=== PATIENT | male | born 1985 | race African-American/Black ===

== ENCOUNTER 2017-04-08 16:40 | Emergency (ER) | payer OTHER ==
--- NOTE | 2017-04-08 19:07 | ED.ADGEN ---
Past Medical History Past Medical History: No Pertinent History Past Surgical History: No Surgical History Alcohol Use: Heavy Drug Use: None Adult General Chief Complaint Chief Complaint: TREMORS HPI HPI Patient is a 31 year old -[place] male presents with occasional coarse tremor in left arm and intermittent palpitations. Symptom onset earlier today and now currently resolved. Patient denies chest pain shortness of breath. He is not diabetic. He takes no medications on a regular basis. Denies recent alcohol consumption, drugs and tobacco. Patient noted to be hypertensive 170/ 105. Patient denies history of hypertension, but states that he never checks his blood pressure and has not seen a doctor in years. Review of Systems Review of Systems Review symptoms as per history of present illness. Allergies Allergies Allergies Coded Allergies Type Severity Reaction Last Updated Verified No Known Drug Allergies 11/13/15 No Physical Exam Physical Exam Constitutional: Well developed, well nourished, no acute distress, non-toxic appearance. HENT: Normocephalic, atraumatic, bilateral external ears normal, oropharynx moist, no oral exudates, nose normal. Eyes: PERRLA, EOMI, conjunctiva normal. Neck: Normal range of motion, no tenderness. Cardiovascular:Heart rate regular rhythm, no murmur. Lungs & Thorax: Bilateral breath sounds clear to auscultation. Abdomen: Bowel sounds normal, soft, no tenderness. Skin: Warm, dry. Back: No tenderness. Extremities: No tenderness. Neurologic: Alert and oriented X 3, normal motor function, normal sensory function, no focal deficits noted. Psychologic: Affect normal, judgement normal, mood normal. Current Patient Data Vital Signs Vital Signs Date Time Temp Pulse Resp B/P (MAP) Pulse Ox O2 Delivery O2 Flow Rate FiO2 04/08/17 18:33 88 20 152/105 (121) 94 04/08/17 17:02 98.6 Room Air 98.6 Lab Values Laboratory Tests Test 04/08/17 18:36 Glucose (Fingerstick) 88 mg/dL (70-99) EKG EKG [EKG: Normal sinus rhythm, rate 99, no acute ST-T wave changes, left atrial abnormality, QTC 468.] Radiology/Procedures Radiology/Procedures [] Impressions: Palpitations resolved, blood sugar confirmed normal. Course & Med Decision Making Course & Med Decision Making Pertinent Labs and Imaging studies reviewed. (See chart for details) [Will start patient on low-dose antihypertensive with instructions to follow-up with PCP for further evaluation and testing. Return precautions reviewed.] Dragon Disclaimer Dragon Disclaimer This electronic medical record was generated, in whole or in part, using a voice recognition dictation system. LISA DILLON DO April 08, 2017 19:07
[2017-04-08 19:25] VITALS: BP 152/97
--- NOTE | 2017-04-09 08:40 | EKG ---
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
== END 2017-04-08 19:28 | disposition home or self-care (01) ==
LOC: ER 16:40
DX: R00.2 Palpitations (principal); F10.10 Alcohol abuse, uncomplicated
CPT/HCPCS: 82947; 93005; 99283-25; 99285-25

== ENCOUNTER 2017-09-16 10:43 | Inpatient (IN) | payer BC, OTHER ==
[~2017-09-16] VITALS: Ht 165.1 cm; Wt 74.9 kg
[2017-09-16] MEDS ORDERED: IV NORMAL SALINE 1000ML BAG 1,000 ML IV ONE (12:30)
--- NOTE | 2017-09-16 12:38 | PHYS DOC ---
Past Medical History Past Medical History: No Pertinent History Past Surgical History: No Surgical History Alcohol Use: Heavy Drug Use: None Adult General Chief Complaint Chief Complaint: DIZZY/LIGHT HEADED HPI HPI Patient is a 32 year old M who presents with dizziness and right arm shaking. Patient states he was at work developed some lightheaded and dizziness along with some right arm shaking. Patient states this happened to him in the past. Patient states usually this happens when his blood pressures elevated. Patient has no PCP. Patient was seen for this a couple months ago and prescribed some blood pressure medication however he is not compliant with his blood pressure medication. Patient states when he stands up the room spins. Patient does not know what brings or stops the right arm shaking. Patient states the shaking uncontrollable. Patient denies any vision changes. Patient denies any chest pain or shortness of breath. Patient denies any nausea/vomiting/diarrhea. Patient has no other complaints. Review of Systems Review of Systems GEN: Denies fevers, chills, sweats HEENT: Denies blurred vision, sore throat CV: Denies chest pain RESP: Denies shortness of air, cough GI: Denies n/v/d NEURO: dizziness MSK: Denies weakness, joint pain/swelling Current Medications Current Medications Current Medications Medications (Trade) Dose Ordered Sig/Noel Start Time Stop Time Status Last Admin Dose Admin Lorazepam (Ativan) 1 mg 1X ONCE 09/16/17 15:30 09/16/17 15:31 DC Morphine Sulfate 4 mg PRN Q2HR PRN 09/16/17 15:30 09/17/17 15:29 Ondansetron HCl (Zofran) 4 mg PRN Q8HRS PRN 09/16/17 15:30 09/17/17 15:29 Sodium Chloride 1,000 ml @ 150 mls/hr Q6H40M 09/16/17 15:28 09/17/17 15:27 Allergies Allergies Allergies Coded Allergies Type Severity Reaction Last Updated Verified No Known Drug Allergies 11/13/15 No Physical Exam Physical Exam GEN.: No apparent distress. Alert and oriented. HEENT: Head is normocephalic, atraumatic NECK: Supple. LUNGS: CTAB. HEART: Tachycardia, S1, S2 present. Peripheral pulses intact ABDOMEN: Soft, nontender. Positive bowel sounds. EXTREMITIES: Without any cyanosis. NEUROLOGIC: Normal speech, normal tone, cranial nerves II through XII are grossly intact without any focal neurological deficits. Patient's having myoclonic jerking of the right upper extremity PSYCHIATRIC: Normal affect, normal mood. SKIN: No ulcerations Current Patient Data Vital Signs Vital Signs Date Time Temp Pulse Resp B/P (MAP) Pulse Ox O2 Delivery O2 Flow Rate FiO2 09/16/17 14:30 96 16 96 09/16/17 10:55 99.4 154/92 (112) Room Air 99.4 Lab Values Laboratory Tests Test 09/16/17 10:59 09/16/17 12:03 09/16/17 13:05 Glucose (Fingerstick) 92 mg/dL (70-99) Urine Color Joy Urine Clarity Clear Urine pH 6.0 Urine Specific [place] >=1.030 Urine Protein 30 mg/dL (NEG-TRACE) Urine Glucose (UA) 500 mg/dL (NEG) Urine Ketones (Stick) Trace mg/dL (NEG) Urine Blood Negative (NEG) Urine Nitrite Negative (NEG) Urine Bilirubin Negative (NEG) Urine Urobilinogen Dipstick 1.0 mg/dL (0.2 mg/dL) Urine Leukocyte Esterase Negative (NEG) Urine RBC 0 /HPF (0-2) Urine WBC Occ /HPF (0-4) Urine Squamous Epithelial Cells Occ /LPF Urine Bacteria 0 /HPF (0-FEW) Urine Mucus Mod /LPF Urine Opiates Screen Neg (NEG) Urine Methadone Screen Neg (NEG) Urine Barbiturates Neg (NEG) Urine Phencyclidine Screen Neg (NEG) Urine Amphetamine/Methamphetamine Neg (NEG) Urine Benzodiazepines Screen Neg (NEG) Urine Cocaine Screen Neg (NEG) Urine Cannabinoids Screen Pos (NEG) Urine Ethyl Alcohol Pos (NEG) White Blood Count 5.9 x10^3/uL (4.0-11.0) Red Blood Count 4.41 x10^6/uL (4.30-5.70) Hemoglobin 14.0 g/dL (13.0-17.5) Hematocrit 41.6 % (39.0-53.0) Mean Corpuscular Volume 94 fL (79-100) Mean Corpuscular Hemoglobin 32 pg (25-35) Mean Corpuscular Hemoglobin Concent 34 g/dL (31-37) Red Cell Distribution Width 14.0 % (11.5-14.5) Platelet Count 122 x10^3/uL (140-400) L Neutrophils (%) (Auto) 87 % (31-73) H Lymphocytes (%) (Auto) 8 % (24-48) L Monocytes (%) (Auto) 4 % (0-9) Eosinophils (%) (Auto) 1 % (0-3) Basophils (%) (Auto) 1 % (0-3) Neutrophils # (Auto) 5.1 x10^3uL (1.8-7.7) Lymphocytes # (Auto) 0.5 x10^3/uL (1.0-4.8) L Monocytes # (Auto) 0.2 x10^3/uL (0.0-1.1) Eosinophils # (Auto) 0.0 x10^3/uL (0.0-0.7) Basophils # (Auto) 0.0 x10^3/uL (0.0-0.2) Platelet Estimate Adequate (ADEQUATE) Sodium Level 142 mmol/L (136-145) Potassium Level 3.6 mmol/L (3.5-5.1) Chloride Level 100 mmol/L (98-107) Carbon Dioxide Level 32 mmol/L (21-32) Anion Gap 10 (6-14) Blood Urea Nitrogen 9 mg/dL (8-26) Creatinine 0.7 mg/dL (0.7-1.3) Estimated GFR (Cockcroft-Gault) 156.2 BUN/Creatinine Ratio 13 (6-20) Glucose Level 84 mg/dL (70-99) Calcium Level 9.7 mg/dL (8.5-10.1) Total Bilirubin 0.4 mg/dL (0.2-1.0) Aspartate Amino Transferase (AST) 279 U/L (15-37) H Alanine Aminotransferase (ALT) 306 U/L (16-63) H Alkaline Phosphatase 65 U/L (46-116) Troponin I Quantitative < 0.017 ng/mL (0.000-0.055) Total Protein 8.4 g/dL (6.4-8.2) H Albumin 4.0 g/dL (3.4-5.0) Albumin/Globulin Ratio 0.9 (1.0-1.7) L Ethyl Alcohol Level 25 mg/dL (0-10) H Laboratory Tests 09/16/17 13:05 Laboratory Tests 09/16/17 13:05 EKG EKG 1246: EKG shows normal sinus rhythm rate of 92 no STEMI[] Radiology/Procedures Radiology/Procedures CT scan of the head and C-spine: Findings: Head: The ventricles are normal in size and configuration. There is no acute intracranial hemorrhage or extra-axial fluid collection. There is no mass effect or midline shift. Urrutia-white differentiation is preserved. There is no depressed skull fracture. The included paranasal sinuses and mastoid air cells are clear. Cervical spine: There is no fracture or dislocation. Prevertebral soft tissues are within normal limits. There is uncinate process spurring at C3-C4 which is greater on the right, probably mild right foraminal narrowing. There is a disc osteophyte complex and uncinate process spurring at C6-C7, mild. There is probably mild to moderate left foraminal narrowing. There is no high-grade canal stenosis. Craniovertebral junction is unremarkable. Lymph nodes along the cervical chains are presumed reactive. Lung apices are clear. Impression: 1. No acute intracranial findings. 2. Negative for fracture or dislocation in the cervical spine. 3. Mild degenerative changes in the cervical spine are greatest at C6-C7, likely with foraminal narrowing on the left at this level. 4. Right foraminal narrowing, mild, suspected at C3-C4.[] Course & Med Decision Making Course & Med Decision Making Pertinent Labs and Imaging studies reviewed. (See chart for details) ED course: Patient was seen and examined emergency room CBC, CMP, UA, and urine drug screen , EtOH level, CT scan of the head, EKG were ordered 1522: Patient was reevaluated in which his tremors left upper extremity has resolved however the patient still tachycardic and had discussion with the patient about his alcohol abuse in which he admitted he does drink heavily. Explained to the patient that this most likely is alcohol withdrawal. Explained to the patient that we'll be admitting him to the hospital for further evaluation and management. 1525: Discussed CC/HP/PMH with Dr. morrison and recommends admit given the patient Ativan [] Dragon Disclaimer Dragon Disclaimer This electronic medical record was generated, in whole or in part, using a voice recognition dictation system. Departure Departure Impression: Primary Impression: Alcohol abuse Additional Impression: Occasional tremors Disposition: ADMITTED INPATIENT Admitting Physician: Hemalatha Morrison Condition: STABLE Referrals: NO PCP (PCP) Problem Qualifiers ANETTE ROGERS DO Sep 16, 2017 12:38
--- NOTE | 2017-09-16 12:56 | RAD ---
Indication: Dizziness, right arm tremors. Technique: Noncontrast CT head was obtained. Axial images and coronal and sagittal reformatted images of the cervical spine were obtained. No comparison is available. One or more of the following individualized dose reduction techniques were utilized for this examination: 1. Automated exposure control 2. Adjustment of the mA and/or kV according to patient size 3. Use of iterative reconstruction technique Findings: Head: The ventricles are normal in size and configuration. There is no acute intracranial hemorrhage or extra-axial fluid collection. There is no mass effect or midline shift. Urrutia-white differentiation is preserved. There is no depressed skull fracture. The included paranasal sinuses and mastoid air cells are clear. Cervical spine: There is no fracture or dislocation. Prevertebral soft tissues are within normal limits. There is uncinate process spurring at C3-C4 which is greater on the right, probably mild right foraminal narrowing. There is a disc osteophyte complex and uncinate process spurring at C6-C7, mild. There is probably mild to moderate left foraminal narrowing. There is no high-grade canal stenosis. Craniovertebral junction is unremarkable. Lymph nodes along the cervical chains are presumed reactive. Lung apices are clear. Impression: 1. No acute intracranial findings. 2. Negative for fracture or dislocation in the cervical spine. 3. Mild degenerative changes in the cervical spine are greatest at C6-C7, likely with foraminal narrowing on the left at this level. 4. Right foraminal narrowing, mild, suspected at C3-C4.
[2017-09-16 13:18] LABS: BASO % 1 % (0-3); EOS % 1 % (0-3); HEMATOCRIT 41.6 % (39.0-53.0); LYMPH # 0.5 x10^3/uL (1.0-4.8); LYMPH % 8 % (24-48); MEAN CORPUSCULAR HEMOGLOBIN 32 pg (25-35); MEAN CORPUSCULAR HGB CONC 34 g/dL (31-37); MEAN CORPUSCULAR VOLUME 94 fL (79-100); MONO % 4 % (0-9); NEUT % 87 % (31-73); PLATELET COUNT 122 x10^3/uL (140-400); RED BLOOD COUNT 4.41 x10^6/uL (4.30-5.70); WHITE BLOOD COUNT 5.9 x10^3/uL (4.0-11.0)
[2017-09-16 13:42] LABS: BILIRUBIN,URINE NEGATIVE (NEG); GLUCOSE,URINE 500 mg/dL (NEG); NITRITE,URINE NEGATIVE (NEG); PROTEIN,URINE 30 mg/dL (NEG-TRACE)
--- NOTE | 2017-09-16 13:44 | EKG ---
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
[2017-09-16 13:45] LABS: CALCIUM 9.7 mg/dL (8.5-10.1); CREATININE 0.7 mg/dL (0.7-1.3); GFR 156.2; POTASSIUM 3.6 mmol/L (3.5-5.1)
[2017-09-16 13:49] LABS: ALBUMIN/GLOBULIN RATIO 0.9 (1.0-1.7); TOTAL BILIRUBIN 0.4 mg/dL (0.2-1.0); TOTAL PROTEIN 8.4 g/dL (6.4-8.2)
[2017-09-16 13:50] LABS: BARBITURATES NEG (NEG); BENZODIAZEPINES NEG (NEG); CANNABINOIDS POS (NEG); COCAINE NEG (NEG); METHADONE NEG (NEG); OPIATES NEG (NEG); PHENCYCLIDINE NEG (NEG)
[2017-09-16 13:54] LABS: BACTERIA,URINE 0 /HPF (0-FEW); RBC,URINE 0 /HPF (0-2); SQUAMOUS EPITHELIAL CELL,UR OCC /LPF; WBC,URINE OCC /HPF (0-4)
--- NOTE | 2017-09-16 14:11 | EKG ---
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
[2017-09-16 14:57] LABS: PLT ESTIMATE ADEQUATE (ADEQUATE)
[2017-09-16] MEDS ORDERED: ONDANSETRON PF 4 MG/2 ML VIAL. IV PRN (15:30)
[2017-09-16] MEDS ORDERED: MORPHINE SULFATE 4 MG/ML DISP.SYRIN. IV PRN (15:30)
[2017-09-16] MEDS: IV NORMAL SALINE 1000ML BAG 1,000 ML IV SCH (16:06)
--- NOTE | 2017-09-16 16:25 | PDOC1 ---
History and Physical Date of Admission Date of Admission DATE: 09/16/17 TIME: 16:21 Identification/Chief Complaint Chief Complaint dizzy Problems: Source Source: Chart review, Patient History of Present Illness History of Present Illness Mr. Merchant, is a 32 year old admit with new dizziness and right arm shaking. 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 Not described as rigor, he called it tremor. And it happened for a short while and resolved. He has hx HTN, takes no meds, and has no PCP. he reports daily EtOH and higher amount of intake over the weekend he feels like the rooms spins when he stands up today. and the arm stopped shaking on its own, he feels tired and lethargic in the ER, HR up, no fever until he reached the floor. Past Medical History Cardiovascular: No pertinent hx Pulmonary: No pertinent hx GI: No pertinent hx Heme/Onc: No pertinent hx Hepatobiliary: No pertinent hx Psych: No pertinent hx Rheumatologic: No pertinent hx Infectious disease: No pertinent hx ENT: No pertinent hx Renal/: No pertinent hx Endocrine: No pertinent hx Past Surgical History Past Surgical History: No pertinent history Social History Smoke: <1 pack per day ALCOHOL: heavy Drugs: None Current Problem List Problem List Problems Medical Problems: (1) Occasional tremors Status: Acute Problems: Current Medications Current Medications Current Medications Sodium Chloride 1,000 ml @ 1,000 mls/hr 1X ONCE IV Last administered on 09/16 13:06; Start 09/16/17 at 12:30; Stop 09/16/17 at 13:29; Status DC Lorazepam (Ativan) 1 mg 1X ONCE IV Last administered on 09/16/17 16:05; Start 09/16/17 at 15:30; Stop 09/16/17 at 15:31; Status DC Ondansetron HCl (Zofran) 4 mg PRN Q8HRS PRN IV NAUSEA/VOMITING; Start at 15:30; Stop 09/17/17 at 15:29 Morphine Sulfate 4 mg PRN Q2HR PRN IV PAIN; Start 09/16/17 at 15:30; Stop at 15:29 Sodium Chloride 1,000 ml @ 150 mls/hr Q6H40M IV Last administered on 10/16/ 17at 16:06; Start 09/16/17 at 15:28; Stop 09/17/17 at 15:27 Allergies Allergies: Coded Allergies: No Known Drug Allergies (Unverified , 11/13/15) Physical Exam General: Alert, Oriented X3, Cooperative, mild distress HEENT: Atraumatic, PERRLA, Mucous membr. moist/pink Lungs: Clear to auscultation, Normal air movement Heart: S1S2, no murmurs Abdomen: Normal bowel sounds, Soft Rectal Exam: not examined Extremities: No edema, Normal pulses Skin: No rashes Neuro: Normal speech, Strength at 5/5 X4 ext, Normal tone, Sensation intact, Cranial nerves 3-12 NL Psych/Mental Status: Mental status NL, Mood NL Vitals Vitals Vital Signs Date Time Temp Pulse Resp B/P (MAP) Pulse Ox O2 Delivery O2 Flow Rate FiO2 09/16/17 14:30 96 16 96 09/16/17 10:55 99.4 154/92 (112) Room Air 99.4 Labs Labs Laboratory Tests Test 09/16/17 10:59 09/16/17 12:03 09/16/17 13:05 Glucose (Fingerstick) 92 mg/dL (70-99) Urine Color Joy Urine Clarity Clear Urine pH 6.0 Urine Specific [place] >=1.030 Urine Protein 30 mg/dL (NEG-TRACE) Urine Glucose (UA) 500 mg/dL (NEG) Urine Ketones (Stick) Trace mg/dL (NEG) Urine Blood Negative (NEG) Urine Nitrite Negative (NEG) Urine Bilirubin Negative (NEG) Urine Urobilinogen Dipstick 1.0 mg/dL (0.2 mg/dL) Urine Leukocyte Esterase Negative (NEG) Urine RBC 0 /HPF (0-2) Urine WBC Occ /HPF (0-4) Urine Squamous Epithelial Cells Occ /LPF Urine Bacteria 0 /HPF (0-FEW) Urine Mucus Mod /LPF Urine Opiates Screen Neg (NEG) Urine Methadone Screen Neg (NEG) Urine Barbiturates Neg (NEG) Urine Phencyclidine Screen Neg (NEG) Urine Amphetamine/Methamphetamine Neg (NEG) Urine Benzodiazepines Screen Neg (NEG) Urine Cocaine Screen Neg (NEG) Urine Cannabinoids Screen Pos (NEG) Urine Ethyl Alcohol Pos (NEG) White Blood Count 5.9 x10^3/uL (4.0-11.0) Red Blood Count 4.41 x10^6/uL (4.30-5.70) Hemoglobin 14.0 g/dL (13.0-17.5) Hematocrit 41.6 % (39.0-53.0) Mean Corpuscular Volume 94 fL (79-100) Mean Corpuscular Hemoglobin 32 pg (25-35) Mean Corpuscular Hemoglobin Concent 34 g/dL (31-37) Red Cell Distribution Width 14.0 % (11.5-14.5) Platelet Count 122 x10^3/uL (140-400) Neutrophils (%) (Auto) 87 % (31-73) Lymphocytes (%) (Auto) 8 % (24-48) Monocytes (%) (Auto) 4 % (0-9) Eosinophils (%) (Auto) 1 % (0-3) Basophils (%) (Auto) 1 % (0-3) Neutrophils # (Auto) 5.1 x10^3uL (1.8-7.7) Lymphocytes # (Auto) 0.5 x10^3/uL (1.0-4.8) Monocytes # (Auto) 0.2 x10^3/uL (0.0-1.1) Eosinophils # (Auto) 0.0 x10^3/uL (0.0-0.7) Basophils # (Auto) 0.0 x10^3/uL (0.0-0.2) Platelet Estimate Adequate (ADEQUATE) Sodium Level 142 mmol/L (136-145) Potassium Level 3.6 mmol/L (3.5-5.1) Chloride Level 100 mmol/L (98-107) Carbon Dioxide Level 32 mmol/L (21-32) Anion Gap 10 (6-14) Blood Urea Nitrogen 9 mg/dL (8-26) Creatinine 0.7 mg/dL (0.7-1.3) Estimated GFR (Cockcroft-Gault) 156.2 BUN/Creatinine Ratio 13 (6-20) Glucose Level 84 mg/dL (70-99) Calcium Level 9.7 mg/dL (8.5-10.1) Total Bilirubin 0.4 mg/dL (0.2-1.0) Aspartate Amino Transf (AST/SGOT) 279 U/L (15-37) Alanine Aminotransferase (ALT/SGPT) 306 U/L (16-63) Alkaline Phosphatase 65 U/L (46-116) Troponin I Quantitative < 0.017 ng/mL (0.000-0.055) Total Protein 8.4 g/dL (6.4-8.2) Albumin 4.0 g/dL (3.4-5.0) Albumin/Globulin Ratio 0.9 (1.0-1.7) Ethyl Alcohol Level 25 mg/dL (0-10) Laboratory Tests Test 09/16/17 10:59 09/16/17 12:03 09/16/17 13:05 Glucose (Fingerstick) 92 mg/dL (70-99) Urine Color Joy Urine Clarity Clear Urine pH 6.0 Urine Specific [place] >=1.030 Urine Protein 30 mg/dL (NEG-TRACE) Urine Glucose (UA) 500 mg/dL (NEG) Urine Ketones (Stick) Trace mg/dL (NEG) Urine Blood Negative (NEG) Urine Nitrite Negative (NEG) Urine Bilirubin Negative (NEG) Urine Urobilinogen Dipstick 1.0 mg/dL (0.2 mg/dL) Urine Leukocyte Esterase Negative (NEG) Urine RBC 0 /HPF (0-2) Urine WBC Occ /HPF (0-4) Urine Squamous Epithelial Cells Occ /LPF Urine Bacteria 0 /HPF (0-FEW) Urine Mucus Mod /LPF Urine Opiates Screen Neg (NEG) Urine Methadone Screen Neg (NEG) Urine Barbiturates Neg (NEG) Urine Phencyclidine Screen Neg (NEG) Urine Amphetamine/Methamphetamine Neg (NEG) Urine Benzodiazepines Screen Neg (NEG) Urine Cocaine Screen Neg (NEG) Urine Cannabinoids Screen Pos (NEG) Urine Ethyl Alcohol Pos (NEG) White Blood Count 5.9 x10^3/uL (4.0-11.0) Red Blood Count 4.41 x10^6/uL (4.30-5.70) Hemoglobin 14.0 g/dL (13.0-17.5) Hematocrit 41.6 % (39.0-53.0) Mean Corpuscular Volume 94 fL (79-100) Mean Corpuscular Hemoglobin 32 pg (25-35) Mean Corpuscular Hemoglobin Concent 34 g/dL (31-37) Red Cell Distribution Width 14.0 % (11.5-14.5) Platelet Count 122 x10^3/uL (140-400) Neutrophils (%) (Auto) 87 % (31-73) Lymphocytes (%) (Auto) 8 % (24-48) Monocytes (%) (Auto) 4 % (0-9) Eosinophils (%) (Auto) 1 % (0-3) Basophils (%) (Auto) 1 % (0-3) Neutrophils # (Auto) 5.1 x10^3uL (1.8-7.7) Lymphocytes # (Auto) 0.5 x10^3/uL (1.0-4.8) Monocytes # (Auto) 0.2 x10^3/uL (0.0-1.1) Eosinophils # (Auto) 0.0 x10^3/uL (0.0-0.7) Basophils # (Auto) 0.0 x10^3/uL (0.0-0.2) Platelet Estimate Adequate (ADEQUATE) Sodium Level 142 mmol/L (136-145) Potassium Level 3.6 mmol/L (3.5-5.1) Chloride Level 100 mmol/L (98-107) Carbon Dioxide Level 32 mmol/L (21-32) Anion Gap 10 (6-14) Blood Urea Nitrogen 9 mg/dL (8-26) Creatinine 0.7 mg/dL (0.7-1.3) Estimated GFR (Cockcroft-Gault) 156.2 BUN/Creatinine Ratio 13 (6-20) Glucose Level 84 mg/dL (70-99) Calcium Level 9.7 mg/dL (8.5-10.1) Total Bilirubin 0.4 mg/dL (0.2-1.0) Aspartate Amino Transf (AST/SGOT) 279 U/L (15-37) Alanine Aminotransferase (ALT/SGPT) 306 U/L (16-63) Alkaline Phosphatase 65 U/L (46-116) Troponin I Quantitative < 0.017 ng/mL (0.000-0.055) Total Protein 8.4 g/dL (6.4-8.2) Albumin 4.0 g/dL (3.4-5.0) Albumin/Globulin Ratio 0.9 (1.0-1.7) Ethyl Alcohol Level 25 mg/dL (0-10) VTE Prophylaxis Ordered VTE Prophylaxis Devices: No VTE Pharmacological Prophylaxi: Yes Assessment/Plan Assessment/Plan sepsis, fever, w/u CXR, blood, urine cx, ua, start rocephin and doxy, f/u right arm tremor, and lightheaded and dizzy. reports 1/2 pint liquor daily, and reports 2 pints daily over the weekend. Likely higher as EtOH level still minimally positive now 14 hours after his last drink try treatment for EtOH withdrawl, acute transaminitis tobaccoism JOSE HORNER MD Sep 16, 2017 16:25
[2017-09-16] MEDS: DOXYCYCLINE HYCLATE 100 MG TABLET PO SCH (18:32)
[2017-09-16 19:00] VITALS: BP 133/77
[2017-09-16] MEDS ORDERED: fentaNYL PF VIAL 100 MCG/2 ML VIAL IV PRN (20:30)
[2017-09-16] MEDS ORDERED: ACETAMINOPHEN 325 MG TABLET. PO PRN (22:00)
[2017-09-16 23:00] VITALS: BP 132/81
[2017-09-17] VITALS (7 sets, daily range): BP systolic 123–139; BP diastolic 61–89
[2017-09-17] MEDS: IV NORMAL SALINE 1000ML BAG 1,000 ML IV SCH ×3 (01:40→08:56)
[2017-09-17 04:20] LABS: BASO % 1 % (0-3); EOS % 2 % (0-3); HEMOGLOBIN 12.7 g/dL (13.0-17.5); LYMPH # 1.2 x10^3/uL (1.0-4.8); LYMPH % 38 % (24-48); MEAN CORPUSCULAR HEMOGLOBIN 32 pg (25-35); MEAN CORPUSCULAR HGB CONC 34 g/dL (31-37); MEAN CORPUSCULAR VOLUME 95 fL (79-100); MONO % 10 % (0-9); NEUT % 50 % (31-73); PLATELET COUNT 99 x10^3/uL (140-400); RED BLOOD COUNT 3.99 x10^6/uL (4.30-5.70); RED CELL DISTRIBUTION WIDTH 13.9 % (11.5-14.5); WHITE BLOOD COUNT 3.1 x10^3/uL (4.0-11.0)
[2017-09-17 04:38] LABS: ALBUMIN 3.1 g/dL (3.4-5.0); ALBUMIN/GLOBULIN RATIO 0.8 (1.0-1.7); CALCIUM 8.5 mg/dL (8.5-10.1); CREATININE 0.7 mg/dL (0.7-1.3); GFR 156.2; TOTAL BILIRUBIN 0.4 mg/dL (0.2-1.0); TOTAL PROTEIN 6.9 g/dL (6.4-8.2)
[2017-09-17 04:39] LABS: POTASSIUM 2.8 mmol/L (3.5-5.1)
[2017-09-17] MEDS ORDERED: POTASSIUM CHLORIDE 20 MEQ TABLET.ER. PO ONE ×2 (05:00→09:00)
--- NOTE | 2017-09-17 08:42 | RAD ---
Indication: Fever and shakiness. Technique: Two-view chest radiograph was obtained. Comparison is from September 27, 2015. Findings: There is minimal streaky opacity in the lung bases. The lungs otherwise are clear. The heart is not enlarged and there is no heart failure. Leads overlie the patient. Impression: Streaky infiltrate or atelectasis in the lung bases.
[2017-09-17] MEDS: DOXYCYCLINE HYCLATE 100 MG TABLET PO SCH ×2 (08:56→21:08)
--- NOTE | 2017-09-17 09:58 | PDOC ---
Infectious Disease Note ROS ROS Vital Sign Vital Signs Vital Signs Date Time Temp Pulse Resp B/P (MAP) Pulse Ox O2 Delivery O2 Flow Rate FiO2 09/17/17 07:30 98.4 89 18 139/88 (105) 97 Room Air 98.4 Labs Lab Laboratory Tests Test 09/16/17 10:59 09/16/17 12:03 09/16/17 13:05 09/17/17 03:45 Glucose (Fingerstick) 92 mg/dL (70-99) Urine Color Joy Urine Clarity Clear Urine pH 6.0 Urine Specific [place] >=1.030 Urine Protein 30 mg/dL (NEG-TRACE) Urine Glucose (UA) 500 mg/dL (NEG) Urine Ketones (Stick) Trace mg/dL (NEG) Urine Blood Negative (NEG) Urine Nitrite Negative (NEG) Urine Bilirubin Negative (NEG) Urine Urobilinogen Dipstick 1.0 mg/dL (0.2 mg/dL) Urine Leukocyte Esterase Negative (NEG) Urine RBC 0 /HPF (0-2) Urine WBC Occ /HPF (0-4) Urine Squamous Epithelial Cells Occ /LPF Urine Bacteria 0 /HPF (0-FEW) Urine Mucus Mod /LPF Urine Opiates Screen Neg (NEG) Urine Methadone Screen Neg (NEG) Urine Barbiturates Neg (NEG) Urine Phencyclidine Screen Neg (NEG) Urine Amphetamine/Methamphetamine Neg (NEG) Urine Benzodiazepines Screen Neg (NEG) Urine Cocaine Screen Neg (NEG) Urine Cannabinoids Screen Pos (NEG) Urine Ethyl Alcohol Pos (NEG) White Blood Count 5.9 x10^3/uL (4.0-11.0) 3.1 x10^3/uL (4.0-11.0) Red Blood Count 4.41 x10^6/uL (4.30-5.70) 3.99 x10^6/uL (4.30-5.70) Hemoglobin 14.0 g/dL (13.0-17.5) 12.7 g/dL (13.0-17.5) Hematocrit 41.6 % (39.0-53.0) 38.0 % (39.0-53.0) Mean Corpuscular Volume 94 fL (79-100) 95 fL (79-100) Mean Corpuscular Hemoglobin 32 pg (25-35) 32 pg (25-35) Mean Corpuscular Hemoglobin Concent 34 g/dL (31-37) 34 g/dL (31-37) Red Cell Distribution Width 14.0 % (11.5-14.5) 13.9 % (11.5-14.5) Platelet Count 122 x10^3/uL (140-400) 99 x10^3/uL (140-400) Neutrophils (%) (Auto) 87 % (31-73) 50 % (31-73) Lymphocytes (%) (Auto) 8 % (24-48) 38 % (24-48) Monocytes (%) (Auto) 4 % (0-9) 10 % (0-9) Eosinophils (%) (Auto) 1 % (0-3) 2 % (0-3) Basophils (%) (Auto) 1 % (0-3) 1 % (0-3) Neutrophils # (Auto) 5.1 x10^3uL (1.8-7.7) 1.6 x10^3uL (1.8-7.7) Lymphocytes # (Auto) 0.5 x10^3/uL (1.0-4.8) 1.2 x10^3/uL (1.0-4.8) Monocytes # (Auto) 0.2 x10^3/uL (0.0-1.1) 0.3 x10^3/uL (0.0-1.1) Eosinophils # (Auto) 0.0 x10^3/uL (0.0-0.7) 0.1 x10^3/uL (0.0-0.7) Basophils # (Auto) 0.0 x10^3/uL (0.0-0.2) 0.0 x10^3/uL (0.0-0.2) Platelet Estimate Adequate (ADEQUATE) Sodium Level 142 mmol/L (136-145) 137 mmol/L (136-145) Potassium Level 3.6 mmol/L (3.5-5.1) 2.8 mmol/L (3.5-5.1) Chloride Level 100 mmol/L (98-107) 97 mmol/L (98-107) Carbon Dioxide Level 32 mmol/L (21-32) 32 mmol/L (21-32) Anion Gap 10 (6-14) 8 (6-14) Blood Urea Nitrogen 9 mg/dL (8-26) 7 mg/dL (8-26) Creatinine 0.7 mg/dL (0.7-1.3) 0.7 mg/dL (0.7-1.3) Estimated GFR (Cockcroft-Gault) 156.2 156.2 BUN/Creatinine Ratio 13 (6-20) 10 (6-20) Glucose Level 84 mg/dL (70-99) 90 mg/dL (70-99) Calcium Level 9.7 mg/dL (8.5-10.1) 8.5 mg/dL (8.5-10.1) Total Bilirubin 0.4 mg/dL (0.2-1.0) 0.4 mg/dL (0.2-1.0) Aspartate Amino Transf (AST/SGOT) 279 U/L (15-37) 133 U/L (15-37) Alanine Aminotransferase (ALT/SGPT) 306 U/L (16-63) 198 U/L (16-63) Alkaline Phosphatase 65 U/L (46-116) 54 U/L (46-116) Troponin I Quantitative < 0.017 ng/mL (0.000-0.055) Total Protein 8.4 g/dL (6.4-8.2) 6.9 g/dL (6.4-8.2) Albumin 4.0 g/dL (3.4-5.0) 3.1 g/dL (3.4-5.0) Albumin/Globulin Ratio 0.9 (1.0-1.7) 0.8 (1.0-1.7) Ethyl Alcohol Level 25 mg/dL (0-10) Objective Assessment Fever ETOH abuse Pancytopenia ? ETOH vs potential viral vs ID. Denies ticks/mosquitoes Transaminitis - ? ETOH - better Mild streaky infiltrates Plan Plan of Care Agree with Rocephin/Doxy F/u labs and cults Monitor for further "shakes of RUE /dizziness" may need Neuro eval Thank you # [phone] JERAMIE GODWIN MD Sep 17, 2017 09:58
[2017-09-17] MEDS ORDERED: MAGNESIUM SULFATE 4GM 100 ML IV ONE (10:15)
[2017-09-17] MEDS ORDERED: traMADol 50 MG TABLET PO PRN (10:15)
--- NOTE | 2017-09-17 10:35 | PDOC ---
PROGRESS NOTES Chief Complaint Chief Complaint sepsis, fever, CXR poss atypical PNA, rocephin and doxy, lightheaded and dizzy. EtOH use, daily acute transaminitis pancytopenia, tobaccoism History of Present Illness History of Present Illness ID consult following, pt feels much improved labs better cont IV fluid cx pending Vitals Vitals Vital Signs Date Time Temp Pulse Resp B/P (MAP) Pulse Ox O2 Delivery O2 Flow Rate FiO2 09/17/17 07:30 98.4 89 18 139/88 (105) 97 Room Air 98.4 Physical Exam General: Alert, Oriented X3, Cooperative, No acute distress Heart: No murmurs Lungs: Clear Abdomen: Normal bowel sounds, Soft Extremities: No edema, Normal pulses Skin: No rashes Labs LABS Laboratory Tests Test 09/16/17 10:59 09/16/17 12:03 09/16/17 13:05 09/17/17 03:45 Glucose (Fingerstick) 92 mg/dL (70-99) Urine Color Joy Urine Clarity Clear Urine pH 6.0 Urine Specific [place] >=1.030 Urine Protein 30 mg/dL (NEG-TRACE) Urine Glucose (UA) 500 mg/dL (NEG) Urine Ketones (Stick) Trace mg/dL (NEG) Urine Blood Negative (NEG) Urine Nitrite Negative (NEG) Urine Bilirubin Negative (NEG) Urine Urobilinogen Dipstick 1.0 mg/dL (0.2 mg/dL) Urine Leukocyte Esterase Negative (NEG) Urine RBC 0 /HPF (0-2) Urine WBC Occ /HPF (0-4) Urine Squamous Epithelial Cells Occ /LPF Urine Bacteria 0 /HPF (0-FEW) Urine Mucus Mod /LPF Urine Opiates Screen Neg (NEG) Urine Methadone Screen Neg (NEG) Urine Barbiturates Neg (NEG) Urine Phencyclidine Screen Neg (NEG) Urine Amphetamine/Methamphetamine Neg (NEG) Urine Benzodiazepines Screen Neg (NEG) Urine Cocaine Screen Neg (NEG) Urine Cannabinoids Screen Pos (NEG) Urine Ethyl Alcohol Pos (NEG) White Blood Count 5.9 x10^3/uL (4.0-11.0) 3.1 x10^3/uL (4.0-11.0) Red Blood Count 4.41 x10^6/uL (4.30-5.70) 3.99 x10^6/uL (4.30-5.70) Hemoglobin 14.0 g/dL (13.0-17.5) 12.7 g/dL (13.0-17.5) Hematocrit 41.6 % (39.0-53.0) 38.0 % (39.0-53.0) Mean Corpuscular Volume 94 fL (79-100) 95 fL (79-100) Mean Corpuscular Hemoglobin 32 pg (25-35) 32 pg (25-35) Mean Corpuscular Hemoglobin Concent 34 g/dL (31-37) 34 g/dL (31-37) Red Cell Distribution Width 14.0 % (11.5-14.5) 13.9 % (11.5-14.5) Platelet Count 122 x10^3/uL (140-400) 99 x10^3/uL (140-400) Neutrophils (%) (Auto) 87 % (31-73) 50 % (31-73) Lymphocytes (%) (Auto) 8 % (24-48) 38 % (24-48) Monocytes (%) (Auto) 4 % (0-9) 10 % (0-9) Eosinophils (%) (Auto) 1 % (0-3) 2 % (0-3) Basophils (%) (Auto) 1 % (0-3) 1 % (0-3) Neutrophils # (Auto) 5.1 x10^3uL (1.8-7.7) 1.6 x10^3uL (1.8-7.7) Lymphocytes # (Auto) 0.5 x10^3/uL (1.0-4.8) 1.2 x10^3/uL (1.0-4.8) Monocytes # (Auto) 0.2 x10^3/uL (0.0-1.1) 0.3 x10^3/uL (0.0-1.1) Eosinophils # (Auto) 0.0 x10^3/uL (0.0-0.7) 0.1 x10^3/uL (0.0-0.7) Basophils # (Auto) 0.0 x10^3/uL (0.0-0.2) 0.0 x10^3/uL (0.0-0.2) Platelet Estimate Adequate (ADEQUATE) Sodium Level 142 mmol/L (136-145) 137 mmol/L (136-145) Potassium Level 3.6 mmol/L (3.5-5.1) 2.8 mmol/L (3.5-5.1) Chloride Level 100 mmol/L (98-107) 97 mmol/L (98-107) Carbon Dioxide Level 32 mmol/L (21-32) 32 mmol/L (21-32) Anion Gap 10 (6-14) 8 (6-14) Blood Urea Nitrogen 9 mg/dL (8-26) 7 mg/dL (8-26) Creatinine 0.7 mg/dL (0.7-1.3) 0.7 mg/dL (0.7-1.3) Estimated GFR (Cockcroft-Gault) 156.2 156.2 BUN/Creatinine Ratio 13 (6-20) 10 (6-20) Glucose Level 84 mg/dL (70-99) 90 mg/dL (70-99) Calcium Level 9.7 mg/dL (8.5-10.1) 8.5 mg/dL (8.5-10.1) Total Bilirubin 0.4 mg/dL (0.2-1.0) 0.4 mg/dL (0.2-1.0) Aspartate Amino Transf (AST/SGOT) 279 U/L (15-37) 133 U/L (15-37) Alanine Aminotransferase (ALT/SGPT) 306 U/L (16-63) 198 U/L (16-63) Alkaline Phosphatase 65 U/L (46-116) 54 U/L (46-116) Troponin I Quantitative < 0.017 ng/mL (0.000-0.055) Total Protein 8.4 g/dL (6.4-8.2) 6.9 g/dL (6.4-8.2) Albumin 4.0 g/dL (3.4-5.0) 3.1 g/dL (3.4-5.0) Albumin/Globulin Ratio 0.9 (1.0-1.7) 0.8 (1.0-1.7) Ethyl Alcohol Level 25 mg/dL (0-10) Review of Systems Review of Systems still some lethargy feels better no n.v.d Assessment and Plan Assessmemt and Plan Problems Medical Problems: (1) Occasional tremors Status: Acute Problems: Comment Review of Relevant I have reviewed the following items kris (where applicable) has been applied. Labs Laboratory Tests Test 09/16/17 10:59 09/16/17 12:03 09/16/17 13:05 09/17/17 03:45 Glucose (Fingerstick) 92 mg/dL (70-99) Urine Color Joy Urine Clarity Clear Urine pH 6.0 Urine Specific [place] >=1.030 Urine Protein 30 mg/dL (NEG-TRACE) Urine Glucose (UA) 500 mg/dL (NEG) Urine Ketones (Stick) Trace mg/dL (NEG) Urine Blood Negative (NEG) Urine Nitrite Negative (NEG) Urine Bilirubin Negative (NEG) Urine Urobilinogen Dipstick 1.0 mg/dL (0.2 mg/dL) Urine Leukocyte Esterase Negative (NEG) Urine RBC 0 /HPF (0-2) Urine WBC Occ /HPF (0-4) Urine Squamous Epithelial Cells Occ /LPF Urine Bacteria 0 /HPF (0-FEW) Urine Mucus Mod /LPF Urine Opiates Screen Neg (NEG) Urine Methadone Screen Neg (NEG) Urine Barbiturates Neg (NEG) Urine Phencyclidine Screen Neg (NEG) Urine Amphetamine/Methamphetamine Neg (NEG) Urine Benzodiazepines Screen Neg (NEG) Urine Cocaine Screen Neg (NEG) Urine Cannabinoids Screen Pos (NEG) Urine Ethyl Alcohol Pos (NEG) White Blood Count 5.9 x10^3/uL (4.0-11.0) 3.1 x10^3/uL (4.0-11.0) Red Blood Count 4.41 x10^6/uL (4.30-5.70) 3.99 x10^6/uL (4.30-5.70) Hemoglobin 14.0 g/dL (13.0-17.5) 12.7 g/dL (13.0-17.5) Hematocrit 41.6 % (39.0-53.0) 38.0 % (39.0-53.0) Mean Corpuscular Volume 94 fL (79-100) 95 fL (79-100) Mean Corpuscular Hemoglobin 32 pg (25-35) 32 pg (25-35) Mean Corpuscular Hemoglobin Concent 34 g/dL (31-37) 34 g/dL (31-37) Red Cell Distribution Width 14.0 % (11.5-14.5) 13.9 % (11.5-14.5) Platelet Count 122 x10^3/uL (140-400) 99 x10^3/uL (140-400) Neutrophils (%) (Auto) 87 % (31-73) 50 % (31-73) Lymphocytes (%) (Auto) 8 % (24-48) 38 % (24-48) Monocytes (%) (Auto) 4 % (0-9) 10 % (0-9) Eosinophils (%) (Auto) 1 % (0-3) 2 % (0-3) Basophils (%) (Auto) 1 % (0-3) 1 % (0-3) Neutrophils # (Auto) 5.1 x10^3uL (1.8-7.7) 1.6 x10^3uL (1.8-7.7) Lymphocytes # (Auto) 0.5 x10^3/uL (1.0-4.8) 1.2 x10^3/uL (1.0-4.8) Monocytes # (Auto) 0.2 x10^3/uL (0.0-1.1) 0.3 x10^3/uL (0.0-1.1) Eosinophils # (Auto) 0.0 x10^3/uL (0.0-0.7) 0.1 x10^3/uL (0.0-0.7) Basophils # (Auto) 0.0 x10^3/uL (0.0-0.2) 0.0 x10^3/uL (0.0-0.2) Platelet Estimate Adequate (ADEQUATE) Sodium Level 142 mmol/L (136-145) 137 mmol/L (136-145) Potassium Level 3.6 mmol/L (3.5-5.1) 2.8 mmol/L (3.5-5.1) Chloride Level 100 mmol/L (98-107) 97 mmol/L (98-107) Carbon Dioxide Level 32 mmol/L (21-32) 32 mmol/L (21-32) Anion Gap 10 (6-14) 8 (6-14) Blood Urea Nitrogen 9 mg/dL (8-26) 7 mg/dL (8-26) Creatinine 0.7 mg/dL (0.7-1.3) 0.7 mg/dL (0.7-1.3) Estimated GFR (Cockcroft-Gault) 156.2 156.2 BUN/Creatinine Ratio 13 (6-20) 10 (6-20) Glucose Level 84 mg/dL (70-99) 90 mg/dL (70-99) Calcium Level 9.7 mg/dL (8.5-10.1) 8.5 mg/dL (8.5-10.1) Total Bilirubin 0.4 mg/dL (0.2-1.0) 0.4 mg/dL (0.2-1.0) Aspartate Amino Transf (AST/SGOT) 279 U/L (15-37) 133 U/L (15-37) Alanine Aminotransferase (ALT/SGPT) 306 U/L (16-63) 198 U/L (16-63) Alkaline Phosphatase 65 U/L (46-116) 54 U/L (46-116) Troponin I Quantitative < 0.017 ng/mL (0.000-0.055) Total Protein 8.4 g/dL (6.4-8.2) 6.9 g/dL (6.4-8.2) Albumin 4.0 g/dL (3.4-5.0) 3.1 g/dL (3.4-5.0) Albumin/Globulin Ratio 0.9 (1.0-1.7) 0.8 (1.0-1.7) Ethyl Alcohol Level 25 mg/dL (0-10) Laboratory Tests Test 09/16/17 10:59 09/16/17 12:03 09/16/17 13:05 09/17/17 03:45 Glucose (Fingerstick) 92 mg/dL (70-99) Urine Color Joy Urine Clarity Clear Urine pH 6.0 Urine Specific [place] >=1.030 Urine Protein 30 mg/dL (NEG-TRACE) Urine Glucose (UA) 500 mg/dL (NEG) Urine Ketones (Stick) Trace mg/dL (NEG) Urine Blood Negative (NEG) Urine Nitrite Negative (NEG) Urine Bilirubin Negative (NEG) Urine Urobilinogen Dipstick 1.0 mg/dL (0.2 mg/dL) Urine Leukocyte Esterase Negative (NEG) Urine RBC 0 /HPF (0-2) Urine WBC Occ /HPF (0-4) Urine Squamous Epithelial Cells Occ /LPF Urine Bacteria 0 /HPF (0-FEW) Urine Mucus Mod /LPF Urine Opiates Screen Neg (NEG) Urine Methadone Screen Neg (NEG) Urine Barbiturates Neg (NEG) Urine Phencyclidine Screen Neg (NEG) Urine Amphetamine/Methamphetamine Neg (NEG) Urine Benzodiazepines Screen Neg (NEG) Urine Cocaine Screen Neg (NEG) Urine Cannabinoids Screen Pos (NEG) Urine Ethyl Alcohol Pos (NEG) White Blood Count 5.9 x10^3/uL (4.0-11.0) 3.1 x10^3/uL (4.0-11.0) Red Blood Count 4.41 x10^6/uL (4.30-5.70) 3.99 x10^6/uL (4.30-5.70) Hemoglobin 14.0 g/dL (13.0-17.5) 12.7 g/dL (13.0-17.5) Hematocrit 41.6 % (39.0-53.0) 38.0 % (39.0-53.0) Mean Corpuscular Volume 94 fL (79-100) 95 fL (79-100) Mean Corpuscular Hemoglobin 32 pg (25-35) 32 pg (25-35) Mean Corpuscular Hemoglobin Concent 34 g/dL (31-37) 34 g/dL (31-37) Red Cell Distribution Width 14.0 % (11.5-14.5) 13.9 % (11.5-14.5) Platelet Count 122 x10^3/uL (140-400) 99 x10^3/uL (140-400) Neutrophils (%) (Auto) 87 % (31-73) 50 % (31-73) Lymphocytes (%) (Auto) 8 % (24-48) 38 % (24-48) Monocytes (%) (Auto) 4 % (0-9) 10 % (0-9) Eosinophils (%) (Auto) 1 % (0-3) 2 % (0-3) Basophils (%) (Auto) 1 % (0-3) 1 % (0-3) Neutrophils # (Auto) 5.1 x10^3uL (1.8-7.7) 1.6 x10^3uL (1.8-7.7) Lymphocytes # (Auto) 0.5 x10^3/uL (1.0-4.8) 1.2 x10^3/uL (1.0-4.8) Monocytes # (Auto) 0.2 x10^3/uL (0.0-1.1) 0.3 x10^3/uL (0.0-1.1) Eosinophils # (Auto) 0.0 x10^3/uL (0.0-0.7) 0.1 x10^3/uL (0.0-0.7) Basophils # (Auto) 0.0 x10^3/uL (0.0-0.2) 0.0 x10^3/uL (0.0-0.2) Platelet Estimate Adequate (ADEQUATE) Sodium Level 142 mmol/L (136-145) 137 mmol/L (136-145) Potassium Level 3.6 mmol/L (3.5-5.1) 2.8 mmol/L (3.5-5.1) Chloride Level 100 mmol/L (98-107) 97 mmol/L (98-107) Carbon Dioxide Level 32 mmol/L (21-32) 32 mmol/L (21-32) Anion Gap 10 (6-14) 8 (6-14) Blood Urea Nitrogen 9 mg/dL (8-26) 7 mg/dL (8-26) Creatinine 0.7 mg/dL (0.7-1.3) 0.7 mg/dL (0.7-1.3) Estimated GFR (Cockcroft-Gault) 156.2 156.2 BUN/Creatinine Ratio 13 (6-20) 10 (6-20) Glucose Level 84 mg/dL (70-99) 90 mg/dL (70-99) Calcium Level 9.7 mg/dL (8.5-10.1) 8.5 mg/dL (8.5-10.1) Total Bilirubin 0.4 mg/dL (0.2-1.0) 0.4 mg/dL (0.2-1.0) Aspartate Amino Transf (AST/SGOT) 279 U/L (15-37) 133 U/L (15-37) Alanine Aminotransferase (ALT/SGPT) 306 U/L (16-63) 198 U/L (16-63) Alkaline Phosphatase 65 U/L (46-116) 54 U/L (46-116) Troponin I Quantitative < 0.017 ng/mL (0.000-0.055) Total Protein 8.4 g/dL (6.4-8.2) 6.9 g/dL (6.4-8.2) Albumin 4.0 g/dL (3.4-5.0) 3.1 g/dL (3.4-5.0) Albumin/Globulin Ratio 0.9 (1.0-1.7) 0.8 (1.0-1.7) Ethyl Alcohol Level 25 mg/dL (0-10) Medications Current Medications Sodium Chloride 1,000 ml @ 1,000 mls/hr 1X ONCE IV Last administered on 09/16 13:06; Start 09/16/17 at 12:30; Stop 09/16/17 at 13:29; Status DC Lorazepam (Ativan) 1 mg 1X ONCE IV Last administered on 09/16/17 16:05; Start 09/16/17 at 15:30; Stop 09/16/17 at 15:31; Status DC Ondansetron HCl (Zofran) 4 mg PRN Q8HRS PRN IV NAUSEA/VOMITING; Start at 15:30; Stop 09/17/17 at 15:29 Morphine Sulfate 4 mg PRN Q2HR PRN IV PAIN Last administered on 09/16/17 17: 55; Start 09/16/17 at 15:30; Stop 09/17/17 at 10:16; Status DC Sodium Chloride 1,000 ml @ 150 mls/hr Q6H40M IV Last administered on 08:56; Start 09/16/17 at 15:28; Stop 09/17/17 at 15:27 Ceftriaxone Sodium 1 gm/ Sodium Chloride 50 ml @ 100 mls/hr Q24H IV Last administered on 09/16/17 18:32; Start 09/16/17 at 18:00 Doxycycline Hyclate (Vibra-Tab) 100 mg BID PO Last administered on 09/17/17 08:56; Start 09/16/17 at 18:00 Fentanyl Citrate (Fentanyl 2ml Vial) 25 mcg PRN Q4HRS PRN IV PAIN Last administered on 09/16/17 22:11; Start 09/16/17 at 20:30 Acetaminophen (Tylenol) 650 mg PRN Q6HRS PRN PO fever Last administered on 22:05; Start 09/16/17 at 22:00 Potassium Chloride (Klor-Con) 40 meq 1X ONCE PO Last administered on 04:57; Start 09/17/17 at 05:00; Stop 09/17/17 at 05:01; Status DC Potassium Chloride (Klor-Con) 40 meq 1X ONCE PO Last administered on 08:56; Start 09/17/17 at 09:00; Stop 09/17/17 at 09:01; Status DC Magnesium Sulfate/ Dextrose 100 ml @ 25 mls/hr 1X ONCE IV ; Start 09/17/17 at 10:15; Stop 09/17/17 at 14:14 Tramadol HCl (Ultram) 50 mg PRN Q6HRS PRN PO PAIN; Start 09/17/17 at 10:15 Vitals/I & O Vital Sign - Last 24 Hours 09/16/17 09/16/17 09/16/17 09/16/17 10:55 11:55 12:55 13:55 Temp 99.4 99.4 Pulse 101 87 97 90 Resp 20 20 23 16 B/P (MAP) 154/92 (112) Pulse Ox 98 97 97 96 O2 Delivery Room Air 09/16/17 09/16/17 09/16/17 09/16/17 14:30 15:30 16:05 16:35 Pulse 96 102 92 96 Resp 16 18 21 18 Pulse Ox 96 97 96 97 09/16/17 09/16/17 09/16/17 09/16/17 17:55 18:32 19:00 19:15 Temp 100.6 100.6 Pulse 104 Resp 18 20 B/P (MAP) 133/77 (95) Pulse Ox 97 97 100 O2 Delivery Room Air Room Air 09/16/17 09/16/17 09/16/17 09/17/17 20:00 22:11 23:00 03:12 Temp 99.1 97.7 99.1 97.7 Pulse 96 82 Resp 20 20 B/P (MAP) 132/81 (98) 129/82 (98) Pulse Ox 100 93 97 O2 Delivery Room Air Room Air Room Air Room Air 09/17/17 09/17/17 07:00 07:30 Temp 97.7 98.4 97.7 98.4 Pulse 67 89 Resp 18 18 B/P (MAP) 123/61 (81) 139/88 (105) Pulse Ox 97 97 O2 Delivery Room Air Room Air Intake and Output 09/17/17 09/17/17 09/18/17 15:00 23:00 07:00 Intake Total 120 ml Output Total 750 ml Balance -630 ml JOSE HORNER MD Sep 17, 2017 10:35
--- NOTE | 2017-09-17 11:46 | CONS ---
DATE OF CONSULTATION: 09/17/2017 LOCATION: Room 519. REQUESTING PHYSICIAN: Dr. Cruz. REASON FOR CONSULTATION: Sepsis. HISTORY OF PRESENT ILLNESS: The patient is a pleasant 32-year-old gentleman with a history of hypertension as well as alcohol abuse, [facility] on the with complaints mainly of dizziness and right arm shaking. These occurred when he was at work. 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 He denies having any fever or chills at home, does have occasional stuffiness and some congestion. He has not been around anybody who has been sick and recently not received any vaccinations. There is no nausea, vomiting, diarrhea. No dysuria, frequency, urgency. No bug bites, tick bites or rashes. When [facility] initially temperature was 99.4 with a blood pressure 154/92, then increased up to 100.6. White blood cell count was 5.9 with 87% neutrophils. Urinalysis has been clean. Toxicology was positive for an alcohol level of 25. Chest x-ray has some streaky atelectasis and he was placed on Rocephin and doxycycline. Currently, the patient is lying in bed, states he is feeling somewhat better. He has already eaten. PAST MEDICAL HISTORY: Positive for hypertension for which he is not compliant with his medications. He has a history of previous "shakes" in the past, and a history of alcohol abuse. PAST SURGICAL HISTORY: Positive for wisdom teeth. REVIEW OF SYSTEMS: Otherwise negative. ALLERGIES: No known antibiotic allergies. SOCIAL HISTORY: He is a smoker. Does drink alcohol. 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 Denies any other medications. No bug bites or tick bites. FAMILY HISTORY: Negative for diabetes, myocardial infarction, hypertension. CURRENT MEDICATIONS: Include Rocephin, doxycycline and other p.r.n. meds. PHYSICAL EXAMINATION: VITAL SIGNS: He is afebrile currently, temperature 98.4, pulse 89, respiratory rate 18, blood pressure 139/88, satting 97% on room air. CONSTITUTIONAL: He is cooperative. He is in no acute distress. He is lying in bed. HEENT: Pupils are equal and reactive. He has normal conjunctivae. Oral cavity, pharynx was clear. NECK: Supple, no JVD. LUNGS: Clear to auscultation bilaterally. HEART: S1, S2. ABDOMEN: Soft, nontender, nondistended, positive bowel sounds. EXTREMITIES: No clubbing, cyanosis or gross edema. SKIN: Warm to touch without signs of rash. NEUROLOGIC: Nonfocal, moves all extremities. PSYCHIATRIC: Affect is appropriate. LABORATORY DATA: White count this morning 3.1, does have a history of white blood cell count of 3.9 in 11/2015, hemoglobin 12.7, platelets 99, 50% neutrophils, 38% lymphs. Creatinine is 0.7, AST 133 down from 279, ALT 198 down from 306. Urine clean. Toxicology also positive for cannabinoids and again positive for alcohol. Chest x-ray, some streaky infiltrate or atelectasis in lung base. CT scan of the head and cervical spine without acute findings. IMPRESSION: 1. Fever. 2. Alcohol abuse. 3. Pancytopenia, questionable secondary to alcohol versus potential virus versus infection. Denies any ticks or mosquitos. 4. Transaminitis, questionable secondary to alcohol, it is better. 5. Mild streaky infiltrate. RECOMMENDATIONS: Agree with Kristopher and Thomas. Follow up on labs and cultures, and may monitor for further "shakes" of the right upper extremity and dizziness, may need Neurology evaluation. Thanks for letting me participate in the patient's care. If you have any questions, please do not hesitate to contact me. JERAMIE GODWIN MD DR: MIRTHA/glenn JOB#: [id number] / [id number]
[2017-09-17] MEDS: FOLIC/VIT B COMP W-C (RENAL) TABLET. PO SCH (15:46)
[2017-09-17] MEDS: MULTIVITAMIN with MINERAL TABLET. PO SCH (15:46)
[2017-09-17] MEDS: THIAMINE 100 MG TABLET. PO SCH (15:46)
[2017-09-18 03:00] VITALS: BP 126/83
[2017-09-18 05:40] LABS: ALBUMIN 3.4 g/dL (3.4-5.0); ALBUMIN/GLOBULIN RATIO 0.8 (1.0-1.7); CALCIUM 9.5 mg/dL (8.5-10.1); CREATININE 0.7 mg/dL (0.7-1.3); GFR 156.2; POTASSIUM 3.3 mmol/L (3.5-5.1); TOTAL BILIRUBIN 0.3 mg/dL (0.2-1.0); TOTAL PROTEIN 7.6 g/dL (6.4-8.2)
[2017-09-18 05:42] LABS: BASO % 1 % (0-3); EOS % 3 % (0-3); HEMATOCRIT 39.9 % (39.0-53.0); HEMOGLOBIN 13.3 g/dL (13.0-17.5); LYMPH % 32 % (24-48); MEAN CORPUSCULAR HEMOGLOBIN 32 pg (25-35); MEAN CORPUSCULAR HGB CONC 33 g/dL (31-37); MEAN CORPUSCULAR VOLUME 94 fL (79-100); MONO % 14 % (0-9); NEUT % 50 % (31-73); PLATELET COUNT 100 x10^3/uL (140-400); RED BLOOD COUNT 4.23 x10^6/uL (4.30-5.70); RED CELL DISTRIBUTION WIDTH 13.4 % (11.5-14.5); WHITE BLOOD COUNT 3.2 x10^3/uL (4.0-11.0)
[2017-09-18 07:00] VITALS: BP 127/78
--- NOTE | 2017-09-18 09:43 | PDOC ---
Infectious Disease Note Subjective Subjective Doing well. Eating well. No shakes ROS ROS GEN: Denies fevers, chills, sweats HEENT: Denies blurred vision, sore throat CV: Denies chest pain RESP: Denies shortness of air, cough GI: Denies n/v/d NEURO: Denies confusion, dizziness MSK: Denies weakness, joint pain/swelling Vital Sign Vital Signs Vital Signs Date Time Temp Pulse Resp B/P (MAP) Pulse Ox O2 Delivery O2 Flow Rate FiO2 09/18/17 07:00 97.4 79 16 127/78 (94) 95 Room Air 97.4 Physical Exam PHYSICAL EXAM GENERAL: NAD, Alert, in chair HEENT: PERRL, OC/OP - clear NECK: Supple, no JVD, no LN LUNGS: Clear HEART: S1S2, no gallop, no murmur ABD: Soft, NT, no organomegaly, no rebound EXT: No edema, no cyanosis [place]: Alert, oriented x 3, no focal neurologic deficit SKIN: No rash IV: ok Labs Lab Laboratory Tests Test 09/18/17 03:52 White Blood Count 3.2 x10^3/uL (4.0-11.0) Red Blood Count 4.23 x10^6/uL (4.30-5.70) Hemoglobin 13.3 g/dL (13.0-17.5) Hematocrit 39.9 % (39.0-53.0) Mean Corpuscular Volume 94 fL (79-100) Mean Corpuscular Hemoglobin 32 pg (25-35) Mean Corpuscular Hemoglobin Concent 33 g/dL (31-37) Red Cell Distribution Width 13.4 % (11.5-14.5) Platelet Count 100 x10^3/uL (140-400) Neutrophils (%) (Auto) 50 % (31-73) Lymphocytes (%) (Auto) 32 % (24-48) Monocytes (%) (Auto) 14 % (0-9) Eosinophils (%) (Auto) 3 % (0-3) Basophils (%) (Auto) 1 % (0-3) Neutrophils # (Auto) 1.6 x10^3uL (1.8-7.7) Lymphocytes # (Auto) 1.0 x10^3/uL (1.0-4.8) Monocytes # (Auto) 0.4 x10^3/uL (0.0-1.1) Eosinophils # (Auto) 0.1 x10^3/uL (0.0-0.7) Basophils # (Auto) 0.0 x10^3/uL (0.0-0.2) Sodium Level 136 mmol/L (136-145) Potassium Level 3.3 mmol/L (3.5-5.1) Chloride Level 99 mmol/L (98-107) Carbon Dioxide Level 29 mmol/L (21-32) Anion Gap 8 (6-14) Blood Urea Nitrogen 7 mg/dL (8-26) Creatinine 0.7 mg/dL (0.7-1.3) Estimated GFR (Cockcroft-Gault) 156.2 BUN/Creatinine Ratio 10 (6-20) Glucose Level 109 mg/dL (70-99) Calcium Level 9.5 mg/dL (8.5-10.1) Total Bilirubin 0.3 mg/dL (0.2-1.0) Aspartate Amino Transf (AST/SGOT) 124 U/L (15-37) Alanine Aminotransferase (ALT/SGPT) 186 U/L (16-63) Alkaline Phosphatase 59 U/L (46-116) Total Protein 7.6 g/dL (6.4-8.2) Albumin 3.4 g/dL (3.4-5.0) Albumin/Globulin Ratio 0.8 (1.0-1.7) Objective Assessment Fever -better ETOH abuse Pancytopenia ? ETOH vs potential viral. Denies ticks/mosquitoes Transaminitis - ? ETOH - better Mild streaky infiltrates Plan Plan of Care D/c Rocephin Home with Doxy to complete 7 days D/w JERAMIE Lovelace MD Sep 18, 2017 09:43
[2017-09-18] MEDS: THIAMINE 100 MG TABLET. PO SCH (10:09)
[2017-09-18] MEDS: DOXYCYCLINE HYCLATE 100 MG TABLET PO SCH (10:09)
[2017-09-18] MEDS: MULTIVITAMIN with MINERAL TABLET. PO SCH (10:09)
[2017-09-18] MEDS: FOLIC/VIT B COMP W-C (RENAL) TABLET. PO SCH (10:09)
[2017-09-18] MEDS ORDERED: MULT1TAB90 PO (10:26)
[2017-09-18] MEDS ORDERED: DOXY100T PO (10:26)
[2017-09-18] MEDS ORDERED: POTASSIUM CHLORIDE 20 MEQ TABLET.ER. PO ONE (10:30)
[2017-09-18 11:00] VITALS: BP 129/73
--- NOTE | 2017-09-18 12:58 | PDOC3 ---
Discharge Summary Visit Information Date of Admission: Sep 16, 2017 Date of Discharge: Sep 18, 2017 Admitting Diagnosis: sepsis Final Diagnosis sepsis, fever and leukopenia and tachycardia and tachypnea on admit CXR poss atypical PNA, rocephin and doxy, lightheaded and dizzy. EtOH use, daily acute transaminitis pancytopenia, tobaccoism critical hypokalemia lProblems Medical Problems: (1) Occasional tremors Status: Acute Brief Hospital Course Allergies Allergies Coded Allergies Type Severity Reaction Last Updated Verified No Known Drug Allergies 11/13/15 No Vital Signs Vital Signs Date Time Temp Pulse Resp B/P (MAP) Pulse Ox O2 Delivery O2 Flow Rate FiO2 09/18/17 11:00 98.1 76 16 129/73 (91) 97 Room Air 98.1 Lab Results Laboratory Tests Test 09/16/17 13:05 09/17/17 03:45 09/18/17 03:52 White Blood Count 5.9 x10^3/uL (4.0-11.0) 3.1 x10^3/uL (4.0-11.0) 3.2 x10^3/uL (4.0-11.0) Red Blood Count 4.41 x10^6/uL (4.30-5.70) 3.99 x10^6/uL (4.30-5.70) 4.23 x10^6/uL (4.30-5.70) Hemoglobin 14.0 g/dL (13.0-17.5) 12.7 g/dL (13.0-17.5) 13.3 g/dL (13.0-17.5) Hematocrit 41.6 % (39.0-53.0) 38.0 % (39.0-53.0) 39.9 % (39.0-53.0) Mean Corpuscular Volume 94 fL (79-100) 95 fL (79-100) 94 fL (79-100) Mean Corpuscular Hemoglobin 32 pg (25-35) 32 pg (25-35) 32 pg (25-35) Mean Corpuscular Hemoglobin Concent 34 g/dL (31-37) 34 g/dL (31-37) 33 g/dL (31-37) Red Cell Distribution Width 14.0 % (11.5-14.5) 13.9 % (11.5-14.5) 13.4 % (11.5-14.5) Platelet Count 122 x10^3/uL (140-400) 99 x10^3/uL (140-400) 100 x10^3/uL (140-400) Neutrophils (%) (Auto) 87 % (31-73) 50 % (31-73) 50 % (31-73) Lymphocytes (%) (Auto) 8 % (24-48) 38 % (24-48) 32 % (24-48) Monocytes (%) (Auto) 4 % (0-9) 10 % (0-9) 14 % (0-9) Eosinophils (%) (Auto) 1 % (0-3) 2 % (0-3) 3 % (0-3) Basophils (%) (Auto) 1 % (0-3) 1 % (0-3) 1 % (0-3) Neutrophils # (Auto) 5.1 x10^3uL (1.8-7.7) 1.6 x10^3uL (1.8-7.7) 1.6 x10^3uL (1.8-7.7) Lymphocytes # (Auto) 0.5 x10^3/uL (1.0-4.8) 1.2 x10^3/uL (1.0-4.8) 1.0 x10^3/uL (1.0-4.8) Monocytes # (Auto) 0.2 x10^3/uL (0.0-1.1) 0.3 x10^3/uL (0.0-1.1) 0.4 x10^3/uL (0.0-1.1) Eosinophils # (Auto) 0.0 x10^3/uL (0.0-0.7) 0.1 x10^3/uL (0.0-0.7) 0.1 x10^3/uL (0.0-0.7) Basophils # (Auto) 0.0 x10^3/uL (0.0-0.2) 0.0 x10^3/uL (0.0-0.2) 0.0 x10^3/uL (0.0-0.2) Platelet Estimate Adequate (ADEQUATE) Sodium Level 142 mmol/L (136-145) 137 mmol/L (136-145) 136 mmol/L (136-145) Potassium Level 3.6 mmol/L (3.5-5.1) 2.8 mmol/L (3.5-5.1) 3.3 mmol/L (3.5-5.1) Chloride Level 100 mmol/L (98-107) 97 mmol/L (98-107) 99 mmol/L (98-107) Carbon Dioxide Level 32 mmol/L (21-32) 32 mmol/L (21-32) 29 mmol/L (21-32) Anion Gap 10 (6-14) 8 (6-14) 8 (6-14) Blood Urea Nitrogen 9 mg/dL (8-26) 7 mg/dL (8-26) 7 mg/dL (8-26) Creatinine 0.7 mg/dL (0.7-1.3) 0.7 mg/dL (0.7-1.3) 0.7 mg/dL (0.7-1.3) Estimated GFR (Cockcroft-Gault) 156.2 156.2 156.2 BUN/Creatinine Ratio 13 (6-20) 10 (6-20) 10 (6-20) Glucose Level 84 mg/dL (70-99) 90 mg/dL (70-99) 109 mg/dL (70-99) Calcium Level 9.7 mg/dL (8.5-10.1) 8.5 mg/dL (8.5-10.1) 9.5 mg/dL (8.5-10.1) Total Bilirubin 0.4 mg/dL (0.2-1.0) 0.4 mg/dL (0.2-1.0) 0.3 mg/dL (0.2-1.0) Aspartate Amino Transf (AST/SGOT) 279 U/L (15-37) 133 U/L (15-37) 124 U/L (15-37) Alanine Aminotransferase (ALT/SGPT) 306 U/L (16-63) 198 U/L (16-63) 186 U/L (16-63) Alkaline Phosphatase 65 U/L (46-116) 54 U/L (46-116) 59 U/L (46-116) Troponin I Quantitative < 0.017 ng/mL (0.000-0.055) Total Protein 8.4 g/dL (6.4-8.2) 6.9 g/dL (6.4-8.2) 7.6 g/dL (6.4-8.2) Albumin 4.0 g/dL (3.4-5.0) 3.1 g/dL (3.4-5.0) 3.4 g/dL (3.4-5.0) Albumin/Globulin Ratio 0.9 (1.0-1.7) 0.8 (1.0-1.7) 0.8 (1.0-1.7) Ethyl Alcohol Level 25 mg/dL (0-10) Laboratory Tests Test 09/18/17 03:52 White Blood Count 3.2 x10^3/uL (4.0-11.0) Red Blood Count 4.23 x10^6/uL (4.30-5.70) Hemoglobin 13.3 g/dL (13.0-17.5) Hematocrit 39.9 % (39.0-53.0) Mean Corpuscular Volume 94 fL (79-100) Mean Corpuscular Hemoglobin 32 pg (25-35) Mean Corpuscular Hemoglobin Concent 33 g/dL (31-37) Red Cell Distribution Width 13.4 % (11.5-14.5) Platelet Count 100 x10^3/uL (140-400) Neutrophils (%) (Auto) 50 % (31-73) Lymphocytes (%) (Auto) 32 % (24-48) Monocytes (%) (Auto) 14 % (0-9) Eosinophils (%) (Auto) 3 % (0-3) Basophils (%) (Auto) 1 % (0-3) Neutrophils # (Auto) 1.6 x10^3uL (1.8-7.7) Lymphocytes # (Auto) 1.0 x10^3/uL (1.0-4.8) Monocytes # (Auto) 0.4 x10^3/uL (0.0-1.1) Eosinophils # (Auto) 0.1 x10^3/uL (0.0-0.7) Basophils # (Auto) 0.0 x10^3/uL (0.0-0.2) Sodium Level 136 mmol/L (136-145) Potassium Level 3.3 mmol/L (3.5-5.1) Chloride Level 99 mmol/L (98-107) Carbon Dioxide Level 29 mmol/L (21-32) Anion Gap 8 (6-14) Blood Urea Nitrogen 7 mg/dL (8-26) Creatinine 0.7 mg/dL (0.7-1.3) Estimated GFR (Cockcroft-Gault) 156.2 BUN/Creatinine Ratio 10 (6-20) Glucose Level 109 mg/dL (70-99) Calcium Level 9.5 mg/dL (8.5-10.1) Total Bilirubin 0.3 mg/dL (0.2-1.0) Aspartate Amino Transf (AST/SGOT) 124 U/L (15-37) Alanine Aminotransferase (ALT/SGPT) 186 U/L (16-63) Alkaline Phosphatase 59 U/L (46-116) Total Protein 7.6 g/dL (6.4-8.2) Albumin 3.4 g/dL (3.4-5.0) Albumin/Globulin Ratio 0.8 (1.0-1.7) Brief Hospital Course Mr. Merchant is a 32 old admit sepsis, in distress, weakness and lethargy CXR showed streaky opacity of right lung base, treated with rocephin IV and doxy, pt improved with required inpatient care over 2 days, and was able to be DC on 7 more days PO doxy transaminitis improving, he declined travel or tick exposure, ID was consulted, folllowed Discharge Information Condition at Discharge: Improved Follow Up: Weeks Disposition/Orders: D/C to Home Scheduled Doxycycline Hyclate (Doxycycline Hyclate), 100 MG PO BID Multivits,Ca,Minerals/Iron/Fa (Thera-M Tablet), 1 TAB PO DAILY Patient Instructions Patient Instructions > 30 min face to face JOSE HORNER MD Sep 18, 2017 12:58
== END 2017-09-18 11:00 | disposition home or self-care (01) | DRG 871 ==
LOC: ER 10:43 → 5 NORTH 15:24
PROVIDERS: ADMIT Internal Medicine; ATTEND Internal Medicine
DX: A41.9 Sepsis, unspecified organism (principal); J18.9 Pneumonia, unspecified organism; D61.818 Other pancytopenia; E87.6 Hypokalemia; F17.210 Nicotine dependence, cigarettes, uncomplicated; I10 Essential (primary) hypertension; F10.10 Alcohol abuse, uncomplicated; Y90.1 Blood alcohol level of 20-39 mg/100 ml
CPT/HCPCS: 36415; 70450; 71020; 72125; 80053; 80307; 81001; 82962; 84484; 85007; 85025; 87040; 93005; 96361; 96374; G0480; J0696; J2060; J2270; J3010; J3475; J7030; 99285-25; G0479

== ENCOUNTER 2018-04-15 14:30 | Emergency (ER) | payer BC ==
[2018-04-15 14:57] LABS: ADD MAN DIFF? NO
[2018-04-15 15:00] LABS: BASO # 0.1 x10^3/uL (0.0-0.2); BASO % 1 % (0-3); EOS # 0.1 x10^3/uL (0.0-0.7); EOS % 2 % (0-3); HEMATOCRIT 39.7 % (39.0-53.0); HEMOGLOBIN 13.3 g/dL (13.0-17.5); LYMPH # 1.1 x10^3/uL (1.0-4.8); LYMPH % 25 % (24-48); MEAN CORPUSCULAR HEMOGLOBIN 32 pg (25-35); MEAN CORPUSCULAR HGB CONC 34 g/dL (31-37); MEAN CORPUSCULAR VOLUME 96 fL (79-100); MONO # 0.5 x10^3/uL (0.0-1.1); MONO % 12 % (0-9); NEUT # 2.5 x10^3uL (1.8-7.7); NEUT % 60 % (31-73); PLATELET COUNT 195 x10^3/uL (140-400); RED BLOOD COUNT 4.15 x10^6/uL (4.30-5.70); RED CELL DISTRIBUTION WIDTH 14.3 % (11.5-14.5); WHITE BLOOD COUNT 4.2 x10^3/uL (4.0-11.0)
[2018-04-15 15:11] LABS: ANION GAP 12 (6-14); BLOOD UREA NITROGEN 9 mg/dL (8-26); CALCIUM 9.8 mg/dL (8.5-10.1); CARBON DIOXIDE 29 mmol/L (21-32); CHLORIDE 101 mmol/L (98-107); CREATININE 0.9 mg/dL (0.7-1.3); GFR 116.9; GLUCOSE 92 mg/dL (70-99); POTASSIUM 3.8 mmol/L (3.5-5.1); SODIUM 142 mmol/L (136-145)
[2018-04-15 15:18] LABS: D-DIMER 0.93 ug/mlFEU (0.00-0.50)
[2018-04-15 15:20] LABS: TROPONINI < 0.017 ng/mL (0.000-0.055)
[2018-04-15 15:25] LABS: TROPONIN BY ISTAT 0.01 ng/ml (<0.08)
[2018-04-15] MEDS: ASPIRIN CHEWABLE 81 MG TABLET. PO (15:43)
[2018-04-15] MEDS: NITROGLYCERIN SUBLINGUAL 0.4 MG BOTTLE OF 25. SL ×2 (15:44→15:59)
[2018-04-15] MEDS: IV NORMAL SALINE 500ML BAG 500 ML IV (15:47)
[2018-04-15] MEDS: IOHEXOL 300 MG/ML 100ML VIAL. IV (15:59)
[2018-04-15] MEDS ORDERED: CONTRAST GIVEN MC ×2 (16:00)
== END 2018-04-15 17:22 | disposition home or self-care (01) ==
LOC: ER 14:30
DX: R07.89 Other chest pain (principal); I10 Essential (primary) hypertension; F12.10 Cannabis abuse, uncomplicated; F10.10 Alcohol abuse, uncomplicated
CPT/HCPCS: 36415; 71045; 71275; 80048; 84484; 85025; 85379; 93005; 99285-25; J7040; Q9967

== ENCOUNTER 2018-04-24 23:20 | Emergency (ER) | payer SELFPAY, BC ==
[2018-04-25] MEDS ORDERED: IV NORMAL SALINE 1000ML BAG 1,000 ML IV (00:30)
== END 2018-04-25 00:12 | disposition home or self-care (01) ==
LOC: ER 04-25 00:12
DX: R55 Syncope and collapse (principal); R07.89 Other chest pain; I10 Essential (primary) hypertension; F12.10 Cannabis abuse, uncomplicated; F10.10 Alcohol abuse, uncomplicated
CPT/HCPCS: 36415; 93005; 99283

== ENCOUNTER 2018-04-26 20:53 | Emergency (ER) | payer SELFPAY ==
[2018-04-26] MEDS: MULTIVIT INFUSN,ADULT 4,VIT K 10 ML, THIAMINE 100 MG, FOLIC ACID 1 MG in IV NORMAL SALI... IV (21:21)
[2018-04-26 21:23] LABS: ADD MAN DIFF? NO
[2018-04-26 21:25] LABS: BASO # 0.1 x10^3/uL (0.0-0.2); BASO % 2 % (0-3); EOS # 0.2 x10^3/uL (0.0-0.7); EOS % 5 % (0-3); HEMATOCRIT 42.1 % (39.0-53.0); HEMOGLOBIN 14.4 g/dL (13.0-17.5); LYMPH # 1.7 x10^3/uL (1.0-4.8); LYMPH % 44 % (24-48); MEAN CORPUSCULAR HEMOGLOBIN 33 pg (25-35); MEAN CORPUSCULAR HGB CONC 34 g/dL (31-37); MEAN CORPUSCULAR VOLUME 95 fL (79-100); MONO # 0.6 x10^3/uL (0.0-1.1); MONO % 15 % (0-9); NEUT # 1.4 x10^3uL (1.8-7.7); NEUT % 35 % (31-73); PLATELET COUNT 105 x10^3/uL (140-400); RED BLOOD COUNT 4.43 x10^6/uL (4.30-5.70); RED CELL DISTRIBUTION WIDTH 13.8 % (11.5-14.5); WHITE BLOOD COUNT 3.9 x10^3/uL (4.0-11.0)
[2018-04-26 21:35] LABS: ANION GAP 13 (6-14); BLOOD UREA NITROGEN 9 mg/dL (8-26); BUN/CREATININE RATIO 13 (6-20); CALCIUM 9.3 mg/dL (8.5-10.1); CARBON DIOXIDE 30 mmol/L (21-32); CHLORIDE 98 mmol/L (98-107); CREATININE 0.7 mg/dL (0.7-1.3); GFR 156.2; GLUCOSE 112 mg/dL (70-99); POTASSIUM 3.5 mmol/L (3.5-5.1); SODIUM 141 mmol/L (136-145)
[2018-04-26 21:35] LABS: MAGNESIUM 2.1 mg/dL (1.8-2.4)
[2018-04-26 21:41] LABS: ALBUMIN 4.1 g/dL (3.4-5.0); ALBUMIN/GLOBULIN RATIO 0.9 (1.0-1.7); ALK PHOS 76 U/L (46-116); ALT (SGPT) 199 U/L (16-63); AST (SGOT) 175 U/L (15-37); TOTAL BILIRUBIN 0.3 mg/dL (0.2-1.0); TOTAL PROTEIN 8.7 g/dL (6.4-8.2)
[2018-04-26 21:43] LABS: TROPONINI < 0.017 ng/mL (0.000-0.055)
[2018-04-26 21:46] LABS: ETHANOL 322 mg/dL (0-10)
[2018-04-26 22:12] LABS: AMPHETAMINE/METHAMPHETAMINE NEG (NEG); BARBITURATES NEG (NEG); BENZODIAZEPINES NEG (NEG); CANNABINOIDS NEG (NEG); COCAINE NEG (NEG); ETHANOL, URINE POS (NEG); METHADONE NEG (NEG); OPIATES NEG (NEG); PHENCYCLIDINE NEG (NEG)
[2018-04-26 22:20] LABS: NT-PRO BNP < 5 pg/mL (0-124)
[2018-04-26 22:35] LABS: D-DIMER 1.09 ug/mlFEU (0.00-0.50)
[2018-04-26 22:54] LABS: AMMONIA 18 mcmol/L (11-34)
[2018-04-26] MEDS ORDERED: CONTRAST GIVEN MC (23:15)
[2018-04-26] MEDS: IOHEXOL 300 MG/ML 100ML VIAL. IV (23:27)
== END 2018-04-27 02:10 | disposition home or self-care (01) ==
LOC: ER 04-27 02:10
DX: R07.89 Other chest pain (principal); F10.129 Alcohol abuse with intoxication, unspecified; F12.10 Cannabis abuse, uncomplicated; I10 Essential (primary) hypertension
CPT/HCPCS: 36415; 70450; 71045; 71275; 80053; 80307; 82140; 83735; 83880; 84484; 85025; 85379; 93005; 96365; 99285-25; G0480; J7030; Q9967

== ENCOUNTER 2018-07-17 11:56 | Emergency (ER) | payer SELFPAY ==
[~2018-07-17] VITALS: Ht 165.1 cm; Wt 74.8 kg
[~2018-07-17 11:56] MED LIST: DOXY100T PO; IBUP-1060 PO; MULT1TAB90 PO
[2018-07-17 12:09] VITALS: BP 114/70
--- NOTE | 2018-07-17 12:20 | PHYS DOC ---
Past Medical History Past Medical History: No Pertinent History, Hypertension Past Surgical History: No Surgical History Alcohol Use: Heavy Drug Use: Marijuana Adult General Chief Complaint Chief Complaint: ANIMAL BITE [facility] HPI Patient is a 32 year old male with history of hypertension who presents today with dog bites to the right knee and left elbow, patient states he got bit today by a stray pitbull dog. Review of Systems Review of Systems Constitutional: Denies fever or chills [] Eyes: Denies change in visual acuity, redness, or eye pain [] HENT: Denies nasal congestion or sore throat [] Respiratory: Denies cough or shortness of breath [] Cardiovascular: No additional information not addressed in HPI [] GI: Denies abdominal pain, nausea, vomiting, bloody stools or diarrhea [] : Denies dysuria or hematuria [] Musculoskeletal: Denies back pain or joint pain [] Integument: Reports dog bites to the right knee and left elbow Neurologic: Denies headache, focal weakness or sensory changes [] All other systems were reviewed and found to be within normal limits, except as documented in this note. Allergies Allergies Allergies Coded Allergies Type Severity Reaction Last Updated Verified No Known Drug Allergies 11/13/15 No Physical Exam Physical Exam Constitutional: Well developed, well nourished, no acute distress, non-toxic appearance. [] HENT: Normocephalic, atraumatic, bilateral external ears normal, oropharynx moist, no oral exudates, nose normal. [] Eyes: PERRLA, EOMI, conjunctiva normal, no discharge. [] Neck: Normal range of motion, no tenderness, supple, no stridor. [] Cardiovascular:Heart rate regular rhythm, no murmur [] Lungs & Thorax: Bilateral breath sounds clear to auscultation [] Abdomen: Bowel sounds normal, soft, no tenderness, no masses, no pulsatile masses. [] Skin: Warm, dry, right proximal anterior knee with 2 puncture wounds there is no drainage to the area, left elbow dorsal aspect with bruising. Neurovascular exam is intact to the right lower extremity as well as left upper extremity. Back: No tenderness, no CVA tenderness. [] Extremities: No tenderness, no cyanosis, no clubbing, ROM intact, no edema. [] Neurologic: Alert and oriented X 3, normal motor function, normal sensory function, no focal deficits noted. [] Psychologic: Affect normal, judgement normal, mood normal. [] Current Patient Data Vital Signs Vital Signs Date Time Temp Pulse Resp B/P (MAP) Pulse Ox O2 Delivery O2 Flow Rate FiO2 07/17/18 12:09 98.2 100 16 114/70 (85) 96 Room Air 98.2 EKG EKG [] Radiology/Procedures Radiology/Procedures [] Course & Med Decision Making Course & Med Decision Making Pertinent Labs and Imaging studies reviewed. (See chart for details) This is a 32-year-old male patient presenting to the ED with dog bites to the right proximal knee and left elbow, bites appear very superficial. Tetanus up-to -date. Discharged on Augmentin. Follow-up with his own PCP as needed. Provided wound care instructions and return precautions. Dragon Disclaimer Dragon Disclaimer This electronic medical record was generated, in whole or in part, using a voice recognition dictation system. Departure Departure Impression: Primary Impression: Dog bite Disposition: 01 HOME, SELF-CARE Condition: STABLE Referrals: NO PCP (PCP) Follow-up with your doctor in 1-2 weeks as needed Patient Instructions: Animal Bite, [id number] Additional Instructions: You were evaluated in the emergency room for dog bites. Please keep the areas clean and dry. Apply Neosporin to the areas twice a day. Complete your oral antibiotics and follow-up with your own doctor in 1-2 weeks. Come back to the emergency room at any point you have concerning symptoms. Scripts Amoxicillin/Potassium Clav (AUGMENTIN 875-125 TABLET) 1 Each Tablet 1 TAB PO BID, #20 TAB Prov: SB NANCE APRN 07/17/18 Problem Qualifiers Primary Impression: Dog bite Encounter type: initial encounter Qualified Codes: W54.0XXA - Bitten by dog , initial encounter SB NANCE APRN Jul 17, 2018 12:20
[2018-07-17] MEDS ORDERED: AMOX1TAB61 PO (12:26)
== END 2018-07-17 12:38 | disposition home or self-care (01) ==
LOC: ER 11:56
DX: S50.02XA Contusion of left elbow, initial encounter (principal); S81.031A Puncture wound without foreign body, right knee, initial encounter; S81.051A Open bite, right knee, initial encounter; S51.052A Open bite, left elbow, initial encounter; I10 Essential (primary) hypertension; F10.10 Alcohol abuse, uncomplicated; Y90.9 Presence of alcohol in blood, level not specified; W54.0XXA Bitten by dog, initial encounter; Y93.89 Activity, other specified; Y92.89 Other specified places as the place of occurrence of the external cause; Y99.8 Other external cause status
CPT/HCPCS: 99283

== ENCOUNTER 2019-09-07 21:16 | Emergency (ER) | payer SELFPAY ==
[~2019-09-07] VITALS: Ht 160 cm; Wt 68.0 kg
[~2019-09-07 21:16] MED LIST changes: +AMOX1TAB61 PO
[2019-09-07 21:30] VITALS: BP 120/68
[2019-09-07] MEDS ORDERED: AMOX875T PO (21:52)
[2019-09-07] MEDS ORDERED: NAPR500T8 PO (21:52)
[2019-09-07] MEDS ORDERED: HYDR-3164 PO (21:52)
--- NOTE | 2019-09-07 21:52 | PHYS DOC ---
Past Medical History Past Medical History: No Pertinent History Past Surgical History: No Surgical History Alcohol Use: Heavy Drug Use: Marijuana Adult General Chief Complaint Chief Complaint: FACE PROBLEM HPI HPI Patient is a 34 year old male who presents to the ED today complaining of a dental abscess on the right lower gum that began yesterday. Patient is also complaining of moderate dental pain and swelling. Denies any fever or trismus. He states he does not have a dentist Review of Systems Review of Systems Constitutional: Denies fever or chills [] Eyes: Denies change in visual acuity, redness, or eye pain [] HENT: Reports dental abscess. Denies nasal congestion or sore throat [] Musculoskeletal: Denies back pain or joint pain [] Integument: Denies rash or skin lesions [] Neurologic: Denies headache, focal weakness or sensory changes [] All other systems were reviewed and found to be within normal limits, except as documented in this note. Allergies Allergies Allergies Coded Allergies Type Severity Reaction Last Updated Verified No Known Drug Allergies 11/13/15 No Physical Exam Physical Exam Constitutional: Well developed, well nourished, no acute distress, non-toxic appearance. [] HENT: Normocephalic, atraumatic, bilateral external ears normal, oropharynx moist, no oral exudates, nose normal. [] Right lower cheek is noted for a dental abscess, right lower gum around the molars with an obvious dental abscess, no fluctuance to this abscess, there is erythema around the right lower gums. Skin: Warm, dry, no erythema, no rash. [] Back: No tenderness, no CVA tenderness. [] Extremities: No tenderness, no cyanosis, no clubbing, ROM intact, no edema. [] Neurologic: Alert and oriented X 3, normal motor function, normal sensory function, no focal deficits noted. [] Psychologic: Affect normal, judgement normal, mood normal. [] Current Patient Data Vital Signs Vital Signs Date Time Temp Pulse Resp B/P (MAP) Pulse Ox O2 Delivery O2 Flow Rate FiO2 09/07/19 21:30 98.3 112 16 120/68 (85) 95 Room Air 98.3 EKG EKG [] Radiology/Procedures Radiology/Procedures [] Course & Med Decision Making Course & Med Decision Making Pertinent Labs and Imaging studies reviewed. (See chart for details) This is a 34-year-old male patient who presents to the ED today with a dental abscess. Patient to be discharged with amoxicillin, hydrocodone and naproxen for pain. Follow-up with the dentist, I did provide him a dental list. Paddy Disclaimer Adrianneon Disclaimer This electronic medical record was generated, in whole or in part, using a voice recognition dictation system. Departure Departure Impression: Primary Impression: Abscess, dental Disposition: HOME, SELF-CARE Condition: STABLE Referrals: NO PCP (PCP) follow up with a dentist as soon as you can Patient Instructions: Dental Abscess Additional Instructions: You were evaluated the emergency room for a dental abscess. Take the prescribed antibiotics until completed. Follow-up with the dentist from the list provided as soon as possible Scripts Naproxen (NAPROXEN) 500 Mg Tablet.dr 1 TAB PO BID, #20 TAB 0 Refills Prov: SB NANCE APRN 09/07/19 Hydrocodone/Apap 5-325 (NORCO 5-325 TABLET) 1 Each Tablet 1 TAB PO Q6HRS, #10 TAB Prov: SB NANCE APRN 09/07/19 Amoxicillin (AMOXICILLIN) 875 Mg Tablet 1 TAB PO BID, #20 TAB Prov: SB NANCE APRN 09/07/19 SB NANCE APRN Sep 07, 2019 21:52
== END 2019-09-07 22:12 | disposition home or self-care (01) ==
LOC: ER 21:16
DX: K04.7 Periapical abscess without sinus (principal); F10.20 Alcohol dependence, uncomplicated; Y90.9 Presence of alcohol in blood, level not specified
CPT/HCPCS: 99283